=== PATIENT | male | born 1965 | race Caucasian/White ===

== ENCOUNTER 2016-07-30 19:13 | Emergency (ER) | payer BC, OTHER ==
[2016-07-30 19:33] VITALS: BP 132/85
[2016-07-30] MEDS ORDERED: Tetan/Diph/Pertus SYR(Tdap)* 0.5 ML SYR(BOOSTRIX) use SYR IM ONE (19:53)
--- NOTE | 2016-07-30 20:25 | UC ---
Laceration HPI - HPI Summary HPI Summary: RIGHT MIDDLE FINGER LACERATION TWO HOURS AGO, WASHING KNIFE AFTER CUTTING RAW CHICKEN, KNIFE SLIPPED. LAST TETANUS UNKNOWN - History Of Current Complaint Chief Complaint: UCLaceration Stated Complaint: LACERATION RIGHT MIDDLE FINGER Time Seen by Provider: 07/30/16 19:35 Hx Obtained From: Patient Laceration Location: Finger Mechanism Of Injury: Sharp Trauma Onset/Duration: Sudden Onset Severity: Mild Aggravating Factors: Position - Allergies/Home Medications Allergies/Adverse Reactions: Allergies Allergy/AdvReac Type Severity Reaction Status Date / Time No Known Allergies Allergy Verified 07/30/16 19:33 PMH/Surg Hx/FS Hx/Imm Hx Previously Healthy: Yes Cardiovascular History Of: Reports: Hypertension - ON MEDICATION Respiratory History Of: Denies: Asthma - Surgical History Surgical History: Yes Surgery Procedure, Year, and Place: BACK SX - Family History Known Family History: Negative: Respiratory Disease - Social History Alcohol Use: Rare Substance Use Type: Prescribed Smoking Status (MU): Former Smoker When Did the Patient Quit Smoking/Using Tobacco: 1987 Review of Systems Constitutional: Negative Skin: Rash - RIGHT MIDDLE FINGER, Other Eyes: Negative ENT: Negative, Dental Pain Cardiovascular: Negative Gastrointestinal: Negative Genitourinary: Negative Motor: Negative Neurovascular: Negative Musculoskeletal: Negative Neurological: Negative Psychological: Negative All Other Systems Reviewed And Are Negative: Yes Physical Exam Triage Information Reviewed: Yes Appearance: Well-Appearing, No Pain Distress, Well-Nourished Vital Signs: Initial Vital Signs Temp 97.9 F 07/30/16 19:29 Pulse 94 07/30/16 19:29 Resp 16 07/30/16 19:29 BP 132/85 07/30/16 19:29 Pulse Ox 98 07/30/16 19:29 Vital Signs Reviewed: Yes Eye Exam: Normal Eyes: Positive: Conjunctiva Clear ENT Exam: Normal ENT: Positive: Normal ENT inspection, Hearing grossly normal, Pharynx normal, TMs normal Dental Exam: Normal Neck exam: Normal Respiratory Exam: Normal Respiratory: Positive: Chest non-tender, Lungs clear, Normal breath sounds, No respiratory distress, No accessory muscle use Cardiovascular Exam: Normal Cardiovascular: Positive: RRR, No Murmur, Pulses Normal Abdominal Exam: Normal Musculoskeletal Exam: Normal Musculoskeletal: Positive: Strength Intact, ROM Intact, No Edema Neurological Exam: Normal Psychological Exam: Normal Psychological: Positive: Normal Response To Family Skin: Positive: Other - LACERATION RIGHT MIDDLE FINGER Laceration Repair - Laceration Repair 1 Description: Linear Laceration Size After Repair: Length (cm) - 1, Width (mm) - 2, Depth (mm) - 2 Modified For Repair: No Cleansing Completed Via Routine Prep: Yes Irrigation With Pressure Irrigation Device: Yes Closure Material: Skin Adhesive, SteriStrips Laceration Course/Dx - Differential Dx - Laceration/Wound Differental Diagnoses: Joint Infection, Laceration Provider Diagnoses: LACERATION RIGHT THIRD FINGER WITH REPAIR. TETANUS PROPHYLAXIS Discharge - Discharge Plan Condition: Stable Disposition: HOME Prescriptions: Cephalexin CAP* [Keflex CAP*] 500 mg PO QID #16 cap Patient Education Materials: Finger Laceration (ED), Skin Adhesive Care (ED), Steristrips (ED) Referrals: Daniel Ricketts MD [Primary Care Provider] - Images Hands: 1 - LACERATION HERE
== END 2016-07-30 20:28 | disposition home or self-care (01) ==
LOC: UCCORT 19:13
DX: S61.212A Laceration without foreign body of right middle finger without damage to nail, initial encounter (principal); W26.0XXA Contact with knife, initial encounter; Y93.G1 Activity, food preparation and clean up; Y92.9 Unspecified place or not applicable; Z23 Encounter for immunization; I10 Essential (primary) hypertension; Z87.891 Personal history of nicotine dependence
CPT/HCPCS: 12001; 90471; 90715; 99212; G0463

== ENCOUNTER 2016-10-03 17:57 | Emergency (ER) | payer BC ==
--- NOTE | 2016-10-03 19:58 | UC ---
General HPI - HPI Summary HPI Summary: complaint of tick bite that he noticed on sunday pulled out the tick and couldn't get the head out attached to him for approx 48 hours small rash around the bite site - History of Current Complaint Stated Complaint: TICK BITE Time Seen by Provider: 10/03/16 19:46 Hx Obtained From: Patient - Allergy/Home Medications Allergies/Adverse Reactions: Allergies Allergy/AdvReac Type Severity Reaction Status Date / Time No Known Allergies Allergy Verified 10/03/16 20:01 Home Medications: Home Medications Multivitamins/Minerals TAB* [Thera M Plus TAB*] 1 tab PO DAILY 10/03/16 [ History Confirmed 10/03/16] PMH/Surg Hx/FS Hx/Imm Hx Previously Healthy: Yes Cardiovascular History Of: Reports: Hypertension - ON MEDICATION Respiratory History Of: Denies: Asthma - Surgical History Surgical History: Yes Surgery Procedure, Year, and Place: BACK SX - Family History Known Family History: Negative: Cardiac Disease, Hypertension, Respiratory Disease - Social History Occupation: Employed Full-time Lives: With Family Alcohol Use: Rare Substance Use Type: Prescribed Smoking Status (MU): Former Smoker When Did the Patient Quit Smoking/Using Tobacco: 1987 Review of Systems Constitutional: Negative Skin: Other - tick bite ENT: Negative Respiratory: Negative Cardiovascular: Negative Gastrointestinal: Negative Genitourinary: Negative Motor: Negative Neurovascular: Negative Musculoskeletal: Negative Neurological: Negative Psychological: Negative All Other Systems Reviewed And Are Negative: Yes Physical Exam Triage Information Reviewed: Yes Appearance: No Pain Distress, Well-Nourished Vital Signs Reviewed: Yes Eyes: Positive: Conjunctiva Clear ENT: Positive: Pharynx normal, TMs normal Neck: Positive: No Lymphadenopathy Respiratory: Positive: Lungs clear, Normal breath sounds, No respiratory distress Cardiovascular: Positive: RRR, No Murmur, Pulses Normal Abdomen Description: Positive: Nontender, Soft Bowel Sounds: Positive: Present Musculoskeletal: Positive: No Edema Neurological Exam: Normal Psychological Exam: Normal Skin: Positive: Other - RLQ of abdmone with tick bite- head embeded small 2cm rash suurounding bite Procedures - Procedure Summary Procedure Summary: cleansed with acohol swab tick head removed with forcep splinters sterile dressing applied Course/Dx - Differential Dx - Multi-Symptom Provider Diagnoses: tick bite, elevated blood pressure Discharge - Discharge Plan Condition: Stable Disposition: HOME Prescriptions: DOXYcycline CAP(*) [DOXYcycline 100MG CAP(*)] 100 mg PO DAILY #2 cap Patient Education Materials: Tick Bite (ED) Referrals: Daniel Ricketts MD [Primary Care Provider] - Additional Instructions: Please take antibiotic as directed Increase fluids and rest Take acetaminophen or ibuprofen for fever or pain Please review your discharge instructions. If your symptoms do not improve please call your primary care provider or return to urgent care. Your blood pressure is elevated. Please contact your primary care provider within 1 day -4 weeks for further evaluation.
[2016-10-03 20:15] VITALS: BP 156/87
== END 2016-10-03 20:13 | disposition home or self-care (01) ==
LOC: UCCORT 17:57
DX: S30.861A Insect bite (nonvenomous) of abdominal wall, initial encounter (principal); W57.XXXA Bitten or stung by nonvenomous insect and other nonvenomous arthropods, initial encounter; Y93.9 Activity, unspecified; Y92.9 Unspecified place or not applicable; I10 Essential (primary) hypertension; Z87.891 Personal history of nicotine dependence
CPT/HCPCS: 99212; G0463

== ENCOUNTER 2017-06-20 19:32 | Emergency (ER) | payer BC | END 2017-06-20 20:34 | disposition left against medical advice (07) | LOC: UCCORT 19:32 | DX: J11.1 Influenza due to unidentified influenza virus with other respiratory manifestations (principal); Z53.21 Procedure and treatment not carried out due to patient leaving prior to being seen by health care provider ==